=== PATIENT | male | born 1930 | race African-American/Black ===

== ENCOUNTER → 2016-12-15 | Outpatient (CLI) | payer MEDICARE, OTHER ==
[~2016-12-15] MED LIST: ALPR0.25 PO; AMIO200T33 PO; AMLO5TAB OR; ASPI81CH49 PO; CLOP75TA28 PO; DYA375C PO; FER325T PO; FOLI1TAB51 GT; FURO20TA PO; IBUP800T24 OR; INSUPOW XX; NEBI10TA2 PO; NOR10T PO; POT10T PO; PRED-188 PO; RIVA20TA PO; SENN-58 PO; SOTA80TA PO; TAMS0.4C36 PO; WARF4TAB33 PO
[2016-12-15 13:20] LABS: BUN/Creatinine Ratio 18.7; Calcium 9.4 mg/dL (8.5-10.1); Potassium 4.1 mmol/L (3.5-5.1)
== END | disposition home or self-care (01) ==
LOC: LAB 10:03
PROVIDERS: ATTEND Internal Medicine Cardiovascular Disease
DX: I10 Essential (primary) hypertension (principal); E11.9 Type 2 diabetes mellitus without complications
CPT/HCPCS: 36415; 80048; 83036

== ENCOUNTER → 2017-03-22 | Outpatient (CLI) | payer MEDICARE, OTHER ==
[2017-03-22 10:10] VITALS: BP 123/68
[2017-03-22 10:35] VITALS: BP 109/58
[2017-03-22 16:24] LABS: BUN/Creatinine Ratio 22.2; Calcium 9.2 mg/dL (8.5-10.1); Potassium 4.7 mmol/L (3.5-5.1)
[2017-03-22 16:26] LABS: INR 0.98 (0.9-1.15); Partial Thromboplastin Time 55.3 sec (22.64-33.71); Prothrombin Time 10.6 sec (9.37-12.3)
[2017-03-22 16:36] LABS: Basophils # (auto) 0 uL; Basophils % (auto) 0.3 % (0.0-2.0); Eosinophils # (auto) 0 uL; Eosinophils % (auto) 0.8 % (0.0-7.0); Hematocrit 41.8 % (41.0-53.0); Lymphocytes # (auto) 1.5 uL; Lymphocytes % (auto) 25.1 % (10.0-50.0); Mean Corpuscular Hemoglobin 31.5 pg (28.0-32.0); Mean Corpuscular Hgb Conc. 33.5 g/dL (32.0-36.0); Monocytes # (auto) 0.4 uL; Neutrophils # (auto) 4.1 uL; Neutrophils % (auto) 66.8 % (37.0-80.0); Platelet Count (auto) 164 10^3/uL (140-450); Red Cell Distribution Width 14.9 % (11.6-16.0); White Blood Cell 6.1 10^3/uL (4.4-10.8)
== END | disposition home or self-care (01) ==
LOC: Rad HDHVI 09:52
PROVIDERS: ATTEND Internal Medicine Cardiovascular Disease
DX: Z01.810 Encounter for preprocedural cardiovascular examination (principal); R79.1 Abnormal coagulation profile; D64.9 Anemia, unspecified; I10 Essential (primary) hypertension
CPT/HCPCS: 36415; 71020; 80048; 85025; 85610; 85730; 93005; G0463

== ENCOUNTER 2017-03-24 07:40 | Day surgery (SDC) | payer MEDICARE, OTHER ==
[~2017-03-24] VITALS: Ht 185.4 cm; Wt 91.2 kg
[2017-03-24] MEDS ORDERED: fentaNYL CITRATE 100 MCG/2 ML VL ONE (09:08)
[2017-03-24] MEDS ORDERED: MIDAZOLAM HCL 1MG/1ML-2 ML VIAL ONE (09:08)
[2017-03-24] MEDS ORDERED: ANGIOMAX 250 MG VIAL IV ONE (09:08)
[2017-03-24] MEDS ORDERED: SODIUM CHL 0.9% 0 ML ONE (09:09)
[2017-03-24] MEDS ORDERED: SODIUM CHLORIDE 0.9% 1,000 ML IV SCH (11:56)
== END 2017-03-24 12:30 | disposition home or self-care (01) ==
LOC: CATH 07:40
PROVIDERS: ATTEND Internal Medicine Cardiovascular Disease
DX: I25.10 Atherosclerotic heart disease of native coronary artery without angina pectoris (principal); I10 Essential (primary) hypertension; E78.5 Hyperlipidemia, unspecified; Z95.1 Presence of aortocoronary bypass graft; R94.39 Abnormal result of other cardiovascular function study; J44.9 Chronic obstructive pulmonary disease, unspecified; Z87.891 Personal history of nicotine dependence
CPT/HCPCS: 93458; C1760; C1894; J1644; J2250; J3010; Q9967; 99152

== ENCOUNTER → 2017-05-06 | Outpatient (CLI) | payer MEDICARE, OTHER ==
[2017-05-06 13:30] VITALS: BP 108/60
[2017-05-06 15:45] VITALS: BP 108/60
== END | disposition home or self-care (01) ==
LOC: CHF HDHVI 13:24
PROVIDERS: ATTEND Internal Medicine Cardiovascular Disease
DX: N28.1 Cyst of kidney, acquired (principal); N26.1 Atrophy of kidney (terminal); I70.8 Atherosclerosis of other arteries
CPT/HCPCS: 74176; G0463